=== PATIENT | male | born 1960 | race Caucasian/White ===

== ENCOUNTER 2017-11-25 16:52 | Emergency (ER) | payer MEDICARE ==
[2017-11-25 17:29] VITALS: TEMP 99.3
[2017-11-25] MEDS ORDERED: cefTRIAXone SODIUM 1 GM VIAL IM ONE (17:45)
[2017-11-25] MEDS ORDERED: SULFA/TRIMETH 800/160 (DS) TAB 1 EA TAB PO ONE (17:45)
--- NOTE | 2017-11-25 17:48 | ED.PDOC ---
History of Present Illness - General Chief Complaint: Skin/Abrasion/Tear Stated Complaint: boil to buttocks Time Seen by Provider: 11/25/17 17:45 Source: patient Exam Limitations: no limitations - History of Present Illness Initial Comments: the patient is a 57-year-old male presenting to the emergency room secondary to a large left lateral buttock abscess that has been present for at least 3 days. No fevers. He has not been feeling good however. He has had previous abscesses. No syncope or near-syncope. He denies any drug allergies. It has not yet drained any. Timing/Duration: unsure Severity: moderate Improving Factors: nothing Worsening Factors: nothing Associated Symptoms: denies symptoms Allergies/Adverse Reactions: Allergies NO KNOWN ALLERGY Allergy (Verified 11/25/17 17:29) Home Medications: Ambulatory Orders Sulfa/Trimeth 800/160 (Ds) Tab [Bactrim DS Tab] 1 ea PO BID #14 tab 11/25/17 Review of Systems - Review of Systems Constitutional: States: malaise EENTM: States: no symptoms reported Respiratory: States: no symptoms reported Cardiology: States: no symptoms reported Gastrointestinal/Abdominal: States: no symptoms reported Genitourinary: States: no symptoms reported Musculoskeletal: States: no symptoms reported Skin: States: see HPI Neurological: States: no symptoms reported Endocrine: States: no symptoms reported All other Systems: No Change from Baseline Past Medical History (General) - Patient Medical History Hx Stroke: No Hx Congestive Heart Failure: No Hx Diabetes: No - Vaccination History Hx Tetanus, Diphtheria Vaccination: - unknown Hx Influenza Vaccination: No Hx Pneumococcal Vaccination: No - Social History Hx Tobacco Use: Yes Family Medical History - Family History Father Family History: Unknown Living Status: Unknown Physical Exam - Physical Exam General Appearance: Alert, No apparent distress Eye Exam: bilateral normal Ears, Nose, Throat: hearing grossly normal, normal ENT inspection - poor dentition Neck: supple Respiratory: lungs clear, normal breath sounds, no respiratory distress, no accessory muscle use Cardiovascular/Chest: normal peripheral pulses, no edema, other - regular rate Peripheral Pulses: dorsalis pedis,right: 2+, dorsalis pedis,left: 2+, posterior tibialis,right: 2+, posterior tibialis,left: 2+ Gastrointestinal/Abdominal: non tender, soft Rectal Exam: deferred Back Exam: normal inspection, no CVA tenderness, no vertebral tenderness Extremity: normal range of motion, non-tender, normal inspection, no pedal edema , normal capillary refill Neurologic: instructor flying II-XII nml as tested, alert, normal mood/affect, oriented x 3 Skin Exam: normal color - with the exception of the inflammation surrounding the left lateral buttock abscess Comments: Vital Signs - 24 hr 11/25/17 17:26 Temperature 99.3 F Pulse Rate [ 97 H Left Brachial] Respiratory 20 Rate Blood Pressure 148/81 [Left Arm] O2 Sat by Pulse 99 Oximetry Progress - Progress Progress: 11/25/17 17:47 the patient's a 57-year-old male presenting to the emergency room secondary to a fairly large left lateral buttock abscess. Risk and benefits of incision and drainage were explained and the patient agreed to proceed. Incision site was cleaned with alcohol. A #11 blade scalpel was used to make a three-quarter inch incision over the head of the abscess. A cotton-tip swab was used to explore the cavity and breakup septations. Approximately 20-25 cc of pus were obtained. The wound is continuing to drain well. wound culture was taken. No packing should be required. The patient is receiving a dose of Rocephin and Bactrim here. He'll be placed on Bactrim twice daily for the next week. He needs to wash the area with soap and water 2 times daily. ER warnings were given for any significant worsening. He needs to keep follow-up with his primary care doctor later this week for reevaluation. No evidence of sepsis at this time. Departure - Departure Clinical Impression: Abscess of buttock, left Disposition: Discharge to Home or Self Care Condition: Fair Departure Forms: ED Discharge - Pt. Copy, Patient Portal Self Enrollment Instructions: Abscess Incision and Drainage (DC) Diet: regular diet Activity: increase activity as tolerated Prescriptions: Sulfa/Trimeth 800/160 (Ds) Tab [Bactrim DS Tab] 1 ea PO BID #14 tab Home Medications: Ambulatory Orders Sulfa/Trimeth 800/160 (Ds) Tab [Bactrim DS Tab] 1 ea PO BID #14 tab 11/25/17 Additional Instructions: the patient's a 57-year-old male presenting to the emergency room secondary to a fairly large left lateral buttock abscess. Incision site was cleaned with alcohol. A #11 blade scalpel was used to make a three-quarter inch incision over the head of the abscess. A cotton-tip swab was used to explore the cavity and breakup septations. Approximately 20-25 cc of pus were obtained. The wound is continuing to drain well. wound culture was taken. No packing should be required. The patient is receiving a dose of Rocephin and Bactrim here. He'll be placed on Bactrim twice daily for the next week. He needs to wash the area with soap and water 2 times daily. ER warnings were given for any significant worsening. He needs to keep follow-up with his primary care doctor later this week for reevaluation. No evidence of sepsis at this time.
[2017-11-25] MEDS ORDERED: LIDOCAINE 1% 2 ML VIAL INJ ONE (17:58)
[2017-11-25 18:31] VITALS: BP 154/76; O2SAT 97
== END 2017-11-25 18:38 | disposition home or self-care (01) ==
LOC: ER 16:52
DX: L02.31 Cutaneous abscess of buttock (principal); Z87.891 Personal history of nicotine dependence
CPT/HCPCS: 87070; J0696

== ENCOUNTER → 2019-04-07 | Outpatient (CLI) | payer OTHER | LOC: LAB.O 10:57 | PROVIDERS: ATTEND Nurse Practitioner Family | DX: M06.80 Other specified rheumatoid arthritis, unspecified site (principal) ==